=== PATIENT | male | born 1970 | race Caucasian/White ===

== ENCOUNTER 2017-08-05 16:31 | Emergency (ER) | payer OTHER ==
[~2017-08-05] VITALS: Ht 188 cm; Wt 99.8 kg
[~2017-08-05 16:31] MED LIST: PROTONIX40 MG PO
[2017-08-05] MEDS ORDERED: TAMIFLU75 MG PO (18:12)
[2017-08-05] MEDS ORDERED: ONDANSETRON ODT8 MG PO (18:19)
--- NOTE | 2017-08-06 07:30 | EKG ---
[facility] [address] [facility] [place] [address] \T\ T wave abnormality, consider inferior ischemia ST \T\ T wave abnormality, consider anterolateral ischemia Abnormal ECG No previous ECGs available Confirmed by BROOKLYNN VAN MD ([id number] on 08/06/2017 7:30:32 AM Electronically Signed By: BROOKLYNN VAN MD 08/06/17 0730 PATIENT NAME: WILDA HERNANDEZ Electrocardiogram DATE OF : 66 PHYSICIAN: BROOKLYNN VAN MD REPORT #: [id number] REPORT IS CONFIDENTIAL AND NOT TO BE RELEASED WITHOUT AUTHORIZATION
== END 2017-08-05 19:01 | disposition home or self-care (01) ==
LOC: ED 16:31
DX: J10.1 Influenza due to other identified influenza virus with other respiratory manifestations (principal); F17.200 Nicotine dependence, unspecified, uncomplicated; Z88.8 Allergy status to other drugs, medicaments and biological substances
CPT/HCPCS: 71045; 80053; 81001; 83605; 84484; 85025; 87040; 87502; 93005; 93010; 96374; 96375; 99283; J1170; J2405; J7030

== ENCOUNTER 2018-11-02 15:11 | Emergency (ER) | payer SELFPAY ==
[~2018-11-02] VITALS: Ht 188 cm; Wt 99.8 kg
[~2018-11-02 15:11] MED LIST changes: +ONDANSETRON ODT8 MG PO; +TAMIFLU75 MG PO
== END 2018-11-02 15:31 | disposition home or self-care (01) ==
LOC: ED 15:11
DX: J02.9 Acute pharyngitis, unspecified (principal)